=== PATIENT | male | born 1980 | race African-American/Black ===

== ENCOUNTER 2017-07-30 08:01 | Emergency (ER) | payer OTHER ==
[~2017-07-30] VITALS: Ht 188 cm; Wt 90.0 kg
[~2017-07-30 08:01] MED LIST: BACT800T5 PO
[2017-07-30 08:02] VITALS: BP 123/83; PULSE 109; RESP 12; TEMP 98.1; O2SAT 99
[2017-07-30 08:17] VITALS: BP 117/70; PULSE 86; RESP 18; TEMP 98.9; O2SAT 97
== END 2017-07-30 23:01 | disposition left against medical advice (07) ==
LOC: NEPE 08:01
DX: M54.2 Cervicalgia (principal); M25.511 Pain in right shoulder; R42 Dizziness and giddiness; R11.0 Nausea; V89.2XXA Person injured in unspecified motor-vehicle accident, traffic, initial encounter; Z53.21 Procedure and treatment not carried out due to patient leaving prior to being seen by health care provider
CPT/HCPCS: 99281